=== PATIENT | female | born 1955 | race Caucasian/White ===

== ENCOUNTER 2019-11-22 12:23 | Inpatient (IN) ==
[2019-11-22] MEDS ORDERED: cefTRIAXone 1,000 MG in 0.9 % Sodium Chloride Mini Bag 100 ML IVPB ONE (12:39)
[2019-11-22] MEDS ORDERED: Doxycycline 100 MG in 0.9 % Sodium Chloride Mini Bag 100 ML IVPB ONE (12:40)
[2019-11-22] MEDS ORDERED: Ipratropium/Albuterol Neb 3 ML IH ONE (12:40)
[2019-11-22] MEDS ORDERED: methylPREDNISolone 125 MG/2 ML VIAL IVP ONE (12:41)
[2019-11-22] MEDS ORDERED: Ondansetron 4 MG/2 ML VIAL IVP ONE (12:46)
[2019-11-22 13:49] LABS: Basophils % 0.2 %; Eosinophils % 0.2 %; Hematocrit 40.2 % (35.3-44.9); Hemoglobin 12.6 g/dL (11.5-15.4); Immature Granulocytes % 0.4 % (0-4); Lymphocytes # 1.6 K/mcL (0.6-4.6); Lymphocytes % 18.6 %; Mean Corpuscular HGB Conc 31.3 g/dL (31.6-35.5); Mean Corpuscular Hemoglobin 29.5 pg (28.0-33.3); Mean Corpuscular Volume 94.1 fL (83.0-100.0); Mean Platelet Volume 9.9 fL (9.4-12.4); Monocytes # 0.2 K/mcL (0.0-1.3); Monocytes % 2.4 %; Neutrophils # 6.7 K/mcL (1.6-8.9); Platelet Count 184 K/mcL (140-400); Red Blood Count 4.27 M/mcL (3.82-4.97); Red Cell Distribution Width 12.6 % (11.5-14.5); Segmented Neutrophils % 78.2 %; White Blood Count 8.5 K/mcL (4.3-11.1)
[2019-11-22 14:06] LABS: INR 1.1; Prothrombin Time 12.8 Seconds (9.4-12.1)
[2019-11-22 14:09] LABS: Activated Partial Thrombo Time 33.4 Seconds (26.0-36.0)
[2019-11-22 14:24] LABS: BUN/Creatinine Ratio 17 (6-26); Blood Urea Nitrogen 14 mg/dL (8-23); Calcium 8.8 mg/dL (8.6-10.3); Carbon Dioxide 24 mEq/L (23-29); Chloride 109 mEq/L (98-107); Glucose 147 mg/dL (70-105); Osmolality,Calculated 297 (280-300); Potassium 3.7 mEq/L (3.5-5.1); Sodium 142 mEq/L (136-145); Troponin I < 0.03 ng/mL (< 0.04); eGFR For African Americans > 60 (> 60); eGFR For Non-African Americans > 60 (> 60)
[2019-11-22 14:26] LABS: Albumin/Globulin Ratio 1.7 (1.1-2.2); Bilirubin,Direct 0.1 mg/dL (0.0-0.2); Bilirubin,Indirect 0.2 mg/dL (0.0-1.0); Bilirubin,Total 0.3 mg/dL (0.3-1.0); Globulin 2.3 g/dL (2.4-3.5); Total Protein 6.3 g/dL (6.4-8.9)
[2019-11-22] MEDS ORDERED: 0.9 % Sodium Chloride 1,000 ML IV ONE (15:03)
[2019-11-22] MEDS ORDERED: Acetaminophen 325 MG TABLET PO ONE (15:04)
[2019-11-22] MEDS ORDERED: Acetaminophen 325 MG TABLET PO PRN (17:35)
[2019-11-22] MEDS ORDERED: Naloxone 0.4 MG/ML INJ IVP PRN (17:35)
[2019-11-22] MEDS ORDERED: 0.9 % Sodium Chloride 1,000 ML IVC SCH (17:45)
[2019-11-22 18:10] LABS: Magnesium 2.1 mg/dL (1.6-2.6)
[2019-11-22] MEDS: Gabapentin 300 MG CAPSULE PO SCH (19:53)
[2019-11-22] MEDS: *HR* OxyCODONE Immed Rel 5 MG TABLET PO PRN (19:53)
[2019-11-22] MEDS: Topiramate 100 MG TABLET PO SCH (19:53)
[2019-11-22] MEDS: Doxycycline 100 MG in 0.9 % Sodium Chloride Mini Bag 100 ML IVPB SCH (19:53)
[2019-11-22] MEDS: levETIRAcetam 250 MG TABLET PO SCH (19:53)
[2019-11-22] MEDS: Ondansetron ODT 4 MG TAB.RAPDIS SL PRN (19:55)
[2019-11-22 21:35] LABS: Adenovirus Not Detected (Not Detect); Bordetella Pertussis Not Detected (Not Detect); Chlamydophila pneumoniae Not Detected (Not Detect); Coronavirus 229E Not Detected (Not Detect); Coronavirus HKU1 Not Detected (Not Detect); Coronavirus NL63 Not Detected (Not Detect); Coronavirus OC43 Not Detected (Not Detect); Human Metapneumovirus Not Detected (Not Detect); Human Rhinovirus/Enterovirus Not Detected (Not Detect); Influenza A Subtype 2009 H1 Not Detected (Not Detect); Influenza B Not Detected (Not Detect); Mycoplasma pneumoniae Not Detected (Not Detect); Parainfluenza Virus 1 Not Detected (Not Detect); Parainfluenza Virus 2 Not Detected (Not Detect); Parainfluenza Virus 3 Not Detected (Not Detect); Parainfluenza Virus 4 Not Detected (Not Detect); Respiratory Syncytial Virus Not Detected (Not Detect)
[2019-11-22] MEDS: Ipratropium/Albuterol Neb 3 ML IH SCH (22:08)
[2019-11-23] MEDS: *HR* OxyCODONE Immed Rel 5 MG TABLET PO PRN ×2 (03:41→20:04)
[2019-11-23] MEDS: Ipratropium/Albuterol Neb 3 ML IH SCH ×4 (03:43→22:15)
[2019-11-23] MEDS: Doxycycline 100 MG in 0.9 % Sodium Chloride Mini Bag 100 ML IVPB SCH ×2 (05:04→17:59)
[2019-11-23] MEDS: Ondansetron ODT 4 MG TAB.RAPDIS SL PRN ×2 (05:04→16:32)
[2019-11-23] MEDS: Gabapentin 300 MG CAPSULE PO SCH ×3 (08:33→20:03)
[2019-11-23] MEDS: levETIRAcetam 250 MG TABLET PO SCH ×2 (08:33→20:03)
[2019-11-23] MEDS: predniSONE 20 MG TABLET PO SCH ×2 (08:33→16:32)
[2019-11-23] MEDS: Topiramate 100 MG TABLET PO SCH ×2 (08:34→20:03)
[2019-11-23] MEDS ORDERED: predniSONE 20 MG TABLET PO SCH (09:00)
[2019-11-23] MEDS ORDERED: cefTRIAXone 1,000 MG in Water for inj. (sterile) 10 ML IVP SCH (09:00)
[2019-11-23 10:36] LABS: Hematocrit 37.2 % (35.3-44.9); Hemoglobin 11.5 g/dL (11.5-15.4); Mean Corpuscular HGB Conc 30.9 g/dL (31.6-35.5); Mean Corpuscular Hemoglobin 29.9 pg (28.0-33.3); Mean Corpuscular Volume 96.6 fL (83.0-100.0); Mean Platelet Volume 9.8 fL (9.4-12.4); Platelet Count 154 K/mcL (140-400); Red Blood Count 3.85 M/mcL (3.82-4.97); Red Cell Distribution Width 12.8 % (11.5-14.5); White Blood Count 9.7 K/mcL (4.3-11.1)
[2019-11-23 10:57] LABS: BUN/Creatinine Ratio 15 (6-26); Blood Urea Nitrogen 13 mg/dL (8-23); Calcium 8.7 mg/dL (8.6-10.3); Carbon Dioxide 23 mEq/L (23-29); Chloride 115 mEq/L (98-107); Glucose 106 mg/dL (70-105); Osmolality,Calculated 293 (280-300); Sodium 141 mEq/L (136-145); eGFR For African Americans > 60 (> 60); eGFR For Non-African Americans > 60 (> 60)
[2019-11-23] MEDS ORDERED: Budesonide/Formoterol 160/4.5 1 PUFF INH IH SCH (18:00)
[2019-11-23] MEDS: Budesonide/Formoterol 160/4.5 1 PUFF INH IH SCH (22:17)
[2019-11-24] MEDS: *HR* OxyCODONE Immed Rel 5 MG TABLET PO PRN (02:52)
[2019-11-24] MEDS: Ondansetron ODT 4 MG TAB.RAPDIS SL PRN (02:53)
[2019-11-24] MEDS: Ipratropium/Albuterol Neb 3 ML IH SCH ×3 (03:46→15:39)
[2019-11-24 04:54] LABS: Hematocrit 38.6 % (35.3-44.9); Hemoglobin 11.9 g/dL (11.5-15.4); Mean Corpuscular HGB Conc 30.8 g/dL (31.6-35.5); Mean Corpuscular Hemoglobin 29.2 pg (28.0-33.3); Mean Corpuscular Volume 94.8 fL (83.0-100.0); Mean Platelet Volume 10.2 fL (9.4-12.4); Platelet Count 184 K/mcL (140-400); Red Blood Count 4.07 M/mcL (3.82-4.97); Red Cell Distribution Width 12.9 % (11.5-14.5); White Blood Count 11.3 K/mcL (4.3-11.1)
[2019-11-24 05:11] LABS: BUN/Creatinine Ratio 24 (6-26); Blood Urea Nitrogen 18 mg/dL (8-23); Calcium 9.1 mg/dL (8.6-10.3); Carbon Dioxide 25 mEq/L (23-29); Chloride 112 mEq/L (98-107); Glucose 150 mg/dL (70-105); Osmolality,Calculated 297 (280-300); Potassium 4.4 mEq/L (3.5-5.1); Sodium 141 mEq/L (136-145); eGFR For African Americans > 60 (> 60); eGFR For Non-African Americans > 60 (> 60)
[2019-11-24] MEDS: Doxycycline 100 MG in 0.9 % Sodium Chloride Mini Bag 100 ML IVPB SCH (06:02)
[2019-11-24] MEDS: Topiramate 100 MG TABLET PO SCH (08:33)
[2019-11-24] MEDS: Gabapentin 300 MG CAPSULE PO SCH ×2 (08:34→16:45)
[2019-11-24] MEDS: predniSONE 20 MG TABLET PO SCH (08:34)
[2019-11-24] MEDS: levETIRAcetam 250 MG TABLET PO SCH (08:34)
[2019-11-24] MEDS: Budesonide/Formoterol 160/4.5 1 PUFF INH IH SCH (09:55)
[2019-11-24] MEDS ORDERED: Benzonatate 100 MG CAPSULE PO PRN (10:00)
[2019-11-24 16:40] VITALS: BP 133/70
[2019-11-24] MEDS ORDERED: Doxycycline 100 MG CAPSULE PO SCH (18:00)
[2019-11-25] MEDS ORDERED: predniSONE 20 MG TABLET PO SCH (09:00)
== END 2019-11-24 19:20 | disposition home or self-care (01) | DRG 193 ==
LOC: 2NNU 12:23 → EMEROOARM 12:23 → SUATTDRO 17:24 → 2NNU 17:43
PROVIDERS: ADMIT Family Medicine; ATTEND Family Medicine